=== PATIENT | female | born 1930 | race Caucasian/White ===

== ENCOUNTER 2018-05-30 12:37 | Emergency (ER) | payer MEDICARE, OTHER ==
[~2018-05-30] VITALS: Ht 165.1 cm; Wt 75.0 kg
[2018-05-30 12:52] VITALS: Ht 165.1 cm; Wt 75.0 kg
[2018-05-30] MEDS ORDERED: PAXIL20 MG PO (12:54)
[2018-05-30] MEDS ORDERED: PRAVACHOL20 MG PO (12:54)
[2018-05-30] MEDS ORDERED: OMEPRAZOLE20 M1 PO (12:55)
[2018-05-30] MEDS ORDERED: KLOR-CON 1010 MEQ PO (12:55)
[2018-05-30] MEDS ORDERED: CARDIZEM CD180 MG PO (12:55)
[2018-05-30] MEDS ORDERED: MECLIZINE HCL25 MG PO (12:56)
[2018-05-30] MEDS ORDERED: SYNTHROID75 MCG PO (12:57)
[2018-05-30] MEDS ORDERED: HYDROCODON-ACE1 EAC7 PO (12:57)
[2018-05-30] MEDS ORDERED: FUROSEMIDE20 MG PO (12:57)
[2018-05-30] MEDS ORDERED: OXYBUTYNIN CHLOR5 MG PO (12:58)
[2018-05-30] MEDS ORDERED: NEURONTIN 300300 MG PO (12:58)
[2018-05-30] MEDS ORDERED: ATIVAN1 MG PO (12:58)
[2018-05-30 14:37] LABS: BASOPHILS 0.2 % (0-2); EOSINOPHILS 0.2 % (0-7); HEMATOCRIT 40.9 % (36.0-48.0); HEMOGLOBIN 14.4 g/dL (12-16); IMMATURE GRANULOCYTES 0.2 % (0-5); LYMPHOCYTES 14.2 % (15-50); MCH 30.6 pg (26.0-34.0); MCHC 35.2 g/dL (31.0-37.0); MCV 86.8 fL (80.0-100.0); MEAN PLATELET VOLUME 10.2 fL (7.4-10.4); NEUTROPHILS 76.2 % (40-80); RBC 4.71 10x6/uL (4.00-5.40); RDW 13.7 % (11.5-14.5); WBC 8.7 10x3/uL (4.8-10.8)
[2018-05-30 14:48] LABS: ALBUMIN 3.5 g/dL (3.4-5.0); ANION GAP 16.7 mmol/L (8-16); BILIRUBIN - TOTAL 0.62 mg/dL (0.2-1.3); CALCIUM 8.7 mg/dL (8.5-10.1); CARBON DIOXIDE 24.9 mmol/L (21.0-32.0); POTASSIUM - SERUM 3.6 mmol/L (3.5-5.1); PROTEIN - SERUM 7.2 g/dL (6.4-8.2)
[2018-05-30 14:51] LABS: PLATELET COUNT 120 10x3/uL (130-400)
[2018-05-30 15:11] LABS: APPEARANCE CLEAR (CLEAR); BILIRUBIN NEGATIVE (NEGATIVE); COLOR YELLOW (YELLOW); GLUCOSE NEGATIVE (NEGATIVE); KETONE NEGATIVE (NEGATIVE); NITRITE NEGATIVE (NEGATIVE); PROTEIN NEGATIVE (NEGATIVE); UROBILINOGEN NORMAL (NORMAL)
[2018-05-30 17:03] VITALS: BP 158/62
[2018-05-30] MEDS ORDERED: VIBRAMYCIN 100100 MG PO (17:16)
== END 2018-05-30 17:42 | disposition home or self-care (01) ==
LOC: D.ER 12:37
PROVIDERS: Emergency Medicine
DX: R25.1 Tremor, unspecified (principal); R05 Cough; I10 Essential (primary) hypertension

== ENCOUNTER 2018-06-09 11:57 | Emergency (ER) | payer MEDICARE, OTHER ==
[~2018-06-09] VITALS: Ht 165.1 cm; Wt 75.0 kg
[~2018-06-09 11:57] MED LIST: ATIVAN1 MG PO; CARDIZEM CD180 MG PO; FUROSEMIDE20 MG PO; HYDROCODON-ACE1 EAC7 PO; KLOR-CON 1010 MEQ PO; MECLIZINE HCL25 MG PO; NEURONTIN 300300 MG PO; OMEPRAZOLE20 M1 PO; OXYBUTYNIN CHLOR5 MG PO; PAXIL20 MG PO; PRAVACHOL20 MG PO; SYNTHROID75 MCG PO; VIBRAMYCIN 100100 MG PO
[2018-06-09 12:05] VITALS: Ht 165.1 cm; Wt 75.0 kg
[2018-06-09] MEDS ORDERED: LISINOPRIL10 MG PO (12:07)
[2018-06-09] MEDS ORDERED: BYSTOLIC5 MG PO (12:07)
[2018-06-09 12:52] LABS: BASOPHILS 0.8 % (0-2); EOSINOPHILS 1.1 % (0-7); HEMATOCRIT 40.6 % (36.0-48.0); IMMATURE GRANULOCYTES 0.2 % (0-5); LYMPHOCYTES 24.3 % (15-50); MCH 30.2 pg (26.0-34.0); MCHC 34.5 g/dL (31.0-37.0); MCV 87.7 fL (80.0-100.0); MEAN PLATELET VOLUME 10.1 fL (7.4-10.4); MONOCYTES 9.9 % (2-11); NEUTROPHILS 63.7 % (40-80); RBC 4.63 10x6/uL (4.00-5.40); RDW 13.6 % (11.5-14.5); WBC 6.2 10x3/uL (4.8-10.8)
[2018-06-09 13:09] LABS: ALKALINE PHOSPHATASE 64 U/L (46-116); ALT (SGPT) 18 U/L (10-68); BILIRUBIN - TOTAL 0.42 mg/dL (0.2-1.3); CALC OSMOLALITY 278 mosm/kg (275-300); CALCIUM 8.2 mg/dL (8.5-10.1); CARBON DIOXIDE 25.2 mmol/L (21.0-32.0); CHLORIDE - SERUM 104 mmol/L (98-107); GLUCOSE 104 mg/dL (74-106); PLATELET COUNT 157 10x3/uL (130-400); POTASSIUM - SERUM 3.9 mmol/L (3.5-5.1); PROTEIN - SERUM 6.5 g/dL (6.4-8.2); SODIUM 139 mmol/L (136-145); UREA NITROGEN 14 mg/dL (7-18); eGFR NON AFRICAN AMERICAN 56 mL/min (90-120)
[2018-06-09 13:34] LABS: CKMB 1.4 U/L (0.0-3.6); CREATINE KINASE 68 UL (21-215); MAGNESIUM - SERUM 1.9 mg/dL (1.8-2.4); TROPONIN-I < 0.017 ng/mL (0.000-0.060)
[2018-06-09 14:23] LABS: APPEARANCE CLEAR (CLEAR); BILIRUBIN NEGATIVE (NEGATIVE); COLOR YELLOW (YELLOW); GLUCOSE NEGATIVE (NEGATIVE); KETONE NEGATIVE (NEGATIVE); NITRITE NEGATIVE (NEGATIVE); PROTEIN NEGATIVE (NEGATIVE); UROBILINOGEN NORMAL (NORMAL)
[2018-06-09] MEDS ORDERED: CATAPRES0.1 MG PO (15:03)
[2018-06-09 15:28] VITALS: BP 158/74
== END 2018-06-09 15:28 | disposition home or self-care (01) ==
LOC: D.ER 11:57
PROVIDERS: Family Medicine
DX: I10 Essential (primary) hypertension (principal); T46.4X5A Adverse effect of angiotensin-converting-enzyme inhibitors, initial encounter; Y92.019 Unspecified place in single-family (private) house as the place of occurrence of the external cause

== ENCOUNTER → 2018-12-17 08:35 | Outpatient (CLI) | payer MEDICARE, OTHER ==
[2018-06-09 12:05] VITALS: BMI 27.5
[~2018-12-17 08:35] MED LIST changes: +BYSTOLIC5 MG PO; +CATAPRES0.1 MG PO; +LISINOPRIL10 MG PO
--- NOTE | 2018-12-19 11:58 | EC ---
PATIENT:SAIRA KHAN DATE OF SERVICE: 12/17/18 SEX: F MEDICAL RECORD: [id number] DATE OF : 34 LOCATION:[facility] AGE OF PATIENT: 88 ADMISSION DATE: 12/17/18 REFERRING PHYSICIAN: INTERPRETING PHYSICIAN: DAKOTA RAMOS MD ECHOCARDIOGRAM REPORT ECHO CHARGES 4 ECHO COMPLETE Date: 12/17/18 CLINICAL DIAGNOSIS: HTN/MITRAL,TRICUSPID,AORTIC REGURG HISTORY ECHOCARDIOGRAPHIC MEASUREMENTS (adult normal given) AC root (d.<3.7cm) 2.7 cm LV Septum d (<1.2 cm> 1.5 cm Valve Excursion 1.5 cm LV Septum (systole) 1.6 cm Left Atria (s.<4.0cm> 3.9 cm LVPW d(<1.2cm) 1.7 cm RV (d.<2.3cm) 3.4 cm LVPW (sytole) 2.0 cm LV diastole(<5.6CM) 5.7 cm MV E-F(>70mm/sec) cm LV systole 3.5 cm LVOT Diameter 1.9 cm MV exc.(>10mm) 1.3 cm Est.ejection fraction (50-75%) % DOPPLER: LVIT cm/sec A 88.0 cm/sec E 67.0 cm/sec LA cm/sec RVSP 48 mmHg LVOT 79 cm/sec AOP1/2T 605 m/s Asc. Ao 143 cm/sec RVOT 68 cm/sec RA cm/sec PA 94 cm/sec AV Gradient Peak 8.21 mmHg AV Mean 4.54 mmHg AV Area 1.7 cm MV Gradient Peak 4.78 mmHg MV Mean 2.03 mmHg MV Area cm COMMENTS: Director Digital Sales: Eleuterio LOWERY Senior Catering Sales Manager: 3 Dr. Choi TAPE# PACS Pericardial Effusion N DATE OF SERVICE: 12/17/2018 Adequate 2D echo, color flow imaging, spectral Doppler, and M-Mode LVH is present. LV internal dimensions are normal. LVH is mildly globally hypokinetic. EF is lower limits of normal to mildly reduced 45 to 50%. 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 Mild AI by color-flow imaging. Left atrium is normal at 3.9 cm. Mitral valve is thickened. Moderate MR. Right-sided chambers are grossly normal. [id number] TR. ECHOCARDIOGRAM REPORT [id number] ERINSAIRAMILLY QURESHI TRANSINT:[id number] Voice Confirmation ID: [id number] DOCUMENT ID: [id number] DAKOTA RAMOS MD at 1158 CC: [id number] DICTATION DATE: 12/18/18 1320 FLEECER: 12/18/18 1518 DEP CLI 12/17/18 [id number] [place] [address]
== END | disposition home or self-care (01) ==
LOC: D.HCCECHO 08:30 → D.HCCARDIO 08:30 → D.HCCECHO 08:35
PROVIDERS: ATTEND Internal Medicine Interventional Cardiology
DX: I10 Essential (primary) hypertension (principal)

== ENCOUNTER → 2019-10-24 08:21 | Outpatient (CLI) | payer MEDICARE, OTHER ==
[2018-06-09 12:05] VITALS: BMI 27.5
== END | disposition home or self-care (01) ==
LOC: D.HCCARDIO 08:21
PROVIDERS: ATTEND Internal Medicine Cardiovascular Disease
DX: R06.00 Dyspnea, unspecified (principal)